=== PATIENT | female | born 1950 | race Caucasian/White ===

== ENCOUNTER 2019-02-21 18:54 | Inpatient (IN) | payer BC, OTHER ==
[~2019-02-21] VITALS: Ht 152.4 cm; Wt 58.1 kg
[~2019-02-21 18:54] MED LIST: ADULT ONE DAI200 MCG PO; ASPIRIN EC81 M1 PO; KLOR-CON 10 ER10 MEQ PO; MECLIZINE HCL25 M1 PO; SIMVASTATIN5 MG PO; TRIAMTERENE W/1 EACH PO; VALIUM5 MG PO
[2019-02-21 19:17] LABS: HEMATOCRIT 42.7 % (37.0-47.0); HEMOGLOBIN 14.5 gm/dL (12.0-15.0); MCH 29.8 pg (26.0-34.0); MCHC 33.9 g/dL (28.0-37.0); MCV 87.9 fL (80.0-100.0); RBC 4.86 mil/uL (4.20-5.00); RDW 13.9 % (10.5-14.5); WBC 8.9 thou/uL (4.0-11.0)
[2019-02-21 19:30] LABS: ANION GAP 14 mmol/L (7-16); BUN 17 mg/dL (7-18); CALCIUM 9.9 mg/dL (8.5-10.1); CHLORIDE 96 mmol/L (98-107); CO2 25 mmol/L (21-32); GLUCOSE 162 mg/dL (74-106); POTASSIUM 3.5 mmol/L (3.5-5.1); SODIUM 135 mmol/L (136-145)
[2019-02-21] MEDS ORDERED: LISINOPRIL-HCT1 EAC2 PO (19:33)
[2019-02-21] MEDS ORDERED: LIPITOR 20 MG T20 M1 PO (19:34)
[2019-02-21] MEDS ORDERED: TOPROL XL25 MG PO (19:34)
[2019-02-21 19:38] LABS: ALBUMIN 4.5 g/dL (3.4-5.0); LIPASE 152 U/L (73-393); SGOT 23 U/L (15-37); SGPT 33 U/L (30-65); TOTAL BILIRUBIN 0.8 mg/dL (<0.1-1.0); TOTAL PROTEIN 8.2 g/dL (6.4-8.2); TROPONIN-I <0.06 ng/mL (<0.06)
[2019-02-21 21:14] LABS: URINE BILIRUBIN NEGATIVE (Negative); URINE BLOOD NEGATIVE (Negative); URINE CLARITY CLEAR; URINE COLOR YELLOW; URINE GLUCOSE-RANDOM* NEGATIVE (Negative); URINE KETONES TRACE (Negative); URINE NITRITE-REFLEX NEGATIVE (Negative); URINE PROTEIN (DIPSTICK) NEGATIVE (Negative); URINE UROBILINOGEN 0.2 E.U./dl (0.2-1.0)
[2019-02-21 21:15] LABS: URINE LEUKOCYTES-REFLEX 1+ (Negative)
[2019-02-21 21:16] VITALS: BP 119/71
[2019-02-21 21:24] LABS: CASTS None Seen /LPF (None Seen); CRYSTALS None Seen /LPF (None Seen); SQUAMOUS 0-3 Few /LPF (0-3); URINE RBC None Seen /HPF (0-2); URINE WBC-REFLEX 0-5 Rare /HPF (0-5)
[2019-02-21 21:40] VITALS: BP 118/58
[2019-02-22 00:16] LABS: CHOLESTEROL 178 mg/dL (<200); HDL CHOLESTEROL 65 mg/dL (>40); LDL CHOLESTEROL 93 mg/dL (<100); TC:HDL 2.7 Ratio (Not establshd); TRIGLYCERIDE 103 mg/dL (<150); VLDL 21 mg/dL (<40)
[2019-02-22 00:20] LABS: SERUM ASSESSMENT Clear
--- NOTE | 2019-02-22 03:24 | NUR ---
ADMITTED FROM ER UNDER 'S CARE. ADMITTED WITH PERSISTENT NAUSEA AND VOMITING. NO VOMITING NOTED AT THIS TIME. NPO FOR ABDOMEN US IN AM. IVF INFUSING AND 1ST DOSE OF ROCEPHINE GIVEN FOR UTI. PT C/O ESOPHAGEAL PAIN FROM VOMITING. GI COCTAIL AND PEPSID GIVEN. NO S/S AUCTE DISTRESS NOTED OR REPORTED AT THIS TIME. TROPONIN NEGATIVE, LACTATE CAME DOWN. SCDs ON AND ALL QUESTIONS ANSWERED. PT WAS SEEN AT THE BEDSIDE BY ILIANA DAS INFANT BABYSITTER FOR THIS EVENING. WILL CONT TO MONITOR FOR ANY CHANGES IN CONDITION.
[2019-02-22 04:26] VITALS: BP 119/68
[2019-02-22 08:29] VITALS: BP 133/74
--- NOTE | 2019-02-22 08:31 | EKG ---
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1950 Requested By: Vickie Vidal Order Number: [id number] MD: Antonio Rosales Measurements Intervals [place] Rate: 110 P: 81 ID: 120 QRS: 60 QRSD: 105 T: -51 QT: 328 QTc: 444 Interpretive Statements Sinus tachycardia Biatrial enlargement Borderline ST depression, lateral leads Compared to ECG 01/18/2012 08:42:04 Electronically Signed On 02-22-2019 8:31:30 CDT by Antonio Rosales [email or web address] ��������������������������������������������� <ELECTRONICALLY SIGNED> ���������������������������������������� By: Antonio Rosales MD ��������������������������������������������� 02/22/19 0831 190 00 Antonio Rosales MD /EPI
--- NOTE | 2019-02-22 08:32 | EKG ---
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1950 Requested By: Vickie Vidal Order Number: [id number] MD: Antonio Rosales Measurements Intervals [place] Rate: 98 P: 78 CO: 126 QRS: 64 QRSD: 86 T: -61 QT: 316 QTc: 404 Interpretive Statements Sinus rhythm unchanged from prior Electronically Signed On 02-22-2019 8:32:35 CDT by Antonio Rosales [email or web address] ��������������������������������������������� <ELECTRONICALLY SIGNED> ���������������������������������������� By: Antonio Rosales MD ��������������������������������������������� 02/22/19 0832 33 33 Antonio Rosales MD /DEANGELO
--- NOTE | 2019-02-22 14:00 | NUR ---
PT ADMITTED RELATED TO N/V. CM REVIEWED CHART AND SPOKE WITH CARE TEAM, CM MET WITH PT AT BEDSIDE THIS DAY PT IS A&O X4. CM ROLE INTRODUCED. PT INDICATED SHE LIVES IN A HOUSE WITH HER SPOUSE WITH 1 STEP TO ENTER AND 1 STEP INSIDE. 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 PT INDICATED NO DME OR HH HX. PT INDICATED SHE USUALLY WATCHES HER GRANDCHILDREN. 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 PT INDICATED SHE PLANS TO RETURN HOME WITH NO NEEDS ONCE MEDICALLY STABLE. CM TO FOLLOW INDICATED WITH DC PLANNING.
[2019-02-22 14:49] VITALS: BP 132/70
--- NOTE | 2019-02-22 15:12 | NUR ---
ASSUMED PATIENT CARE AT 0715. A&OX4. NO COMPLAINTS OF PAIN. UP X1. FEELING DIZZY WITH ACTIVITY. NO N/V. TOLERATING CLEAR LIQUIDS. ABDOMINAL US AND KUB WAS UNREMARKABLE. GI CONSULTED. ABLE TO MAKE NEEDS KNOWN. WORKING TOWARDS GOALS.
[2019-02-22 19:45] VITALS: BP 119/64
[2019-02-22 23:07] LABS: GLYCOHEMOGLOBIN (HGB A1C) 5.8 % (4.8-5.6)
[2019-02-23 04:24] VITALS: BP 122/66
--- NOTE | 2019-02-23 05:45 | NUR ---
Pt. rested quietly during the night when checked on during frequent rounds. She offers no c/o nausea. Assisted up to the bathroom with standby assist. No c/o pain. Bed alarm is on.
[2019-02-23 08:07] VITALS: BP 136/74
[2019-02-23] MEDS ORDERED: PEPCID20 MG PO (14:43)
[2019-02-23 15:35] VITALS: BP 136/74
--- NOTE | 2019-02-23 16:07 | NUR ---
PT DISCHARGED HOME WITH . PT LEFT A&OX4, VSS, NO PAIN, NO N/V/D. PT HAS ALL BELONGINGS AND COMMUNICATES UNDERSTANDING OF PRESCRIPTION AND DISCHARGE INFORMATION.
== END 2019-02-23 16:45 | disposition home or self-care (01) | DRG 392 ==
LOC: ER 18:54 → EROBS 20:33 → 4W 20:33
PROVIDERS: Nurse Practitioner Acute Care; Student in an Organized Health Care Education/Training Program; ADMIT Internal Medicine
DX: K52.9 Noninfective gastroenteritis and colitis, unspecified (principal); N39.0 Urinary tract infection, site not specified; I10 Essential (primary) hypertension; E78.5 Hyperlipidemia, unspecified; R73.9 Hyperglycemia, unspecified; Z79.82 Long term (current) use of aspirin; Z79.899 Other long term (current) drug therapy; Z86.73 Personal history of transient ischemic attack (TIA), and cerebral infarction without residual deficits; Z82.49 Family history of ischemic heart disease and other diseases of the circulatory system; Z80.0 Family history of malignant neoplasm of digestive organs; Z87.891 Personal history of nicotine dependence
CPT/HCPCS: 10045